=== PATIENT | male | born 1995 | race Caucasian/White ===

== ENCOUNTER 2021-01-13 17:08 | Inpatient (IN) | payer OTHER ==
[~2021-01-13] VITALS: Ht 172.7 cm; Wt 72.6 kg
[2021-01-13 17:24] VITALS: Ht 172.7 cm; Wt 72.6 kg
[2021-01-13 17:41] LABS: microscopic required? NO
[2021-01-13 17:43] LABS: BASOPHIL % 0.5 % (0.2-1.5); PLATELET COUNT 270 x10^3mcL (152-348); RED CELL DISTRIBUTION WIDTH 12.3 % (12.1-16.2)
[2021-01-13 17:49] LABS: UA SPECIFIC GRAVITY >=1.030 (1.005-1.035); urine erythrocyte NEGATIVE (NEGATIVE)
[2021-01-13 17:56] LABS: AMPHETAMINE QUAL UR NONE DETECTED (See below)
[2021-01-13 17:58] LABS: CARBON DIOXIDE 24.4 mmol/L (21-32); CHLORIDE SERUM 99 mmol/L (98-107); CREATININE SERUM 1.2 mg/dL (0.7-1.3); GFR1 > 60 mL/min; GLUCOSE SERUM 123 mg/dL (74-106); POTASSIUM SERUM 4.1 mmol/L (3.5-5.1); SODIUM SERUM 138 mmol/L (136-145)
[2021-01-13 18:10] LABS: ALBUMIN 4.4 g/dL (3.4-5.0); ALKALINE PHOSPHATASE 84 U/L (46-116); ALT/SGPT 27 U/L (16-63); AST/SGOT 41 U/L (15-37); BILIRUBIN TOTAL 2.09 mg/dL (0.20-1.00); T4(THYROXINE) 11.1 ug/dL (4.7-13.3)
[2021-01-13] MEDS ORDERED: VOLTAREN100 GM TOP (19:48)
[2021-01-13] MEDS ORDERED: COGENTIN2 MG/2 ML PO (21:58)
[2021-01-13] MEDS ORDERED: HYDROXYZIN10 MG/5 M2 PO (21:58)
[2021-01-13] MEDS ORDERED: VIS50 PO (21:59)
[2021-01-13] MEDS ORDERED: THO50 PO (21:59)
[2021-01-13] MEDS ORDERED: THO10 PO (21:59)
[2021-01-14 00:19] VITALS: BP 115/69
[2021-01-14 05:23] VITALS: BP 105/55
[2021-01-14 05:57] LABS: CARBON DIOXIDE 23.9 mmol/L (21-32); CHLORIDE SERUM 104 mmol/L (98-107); CREATININE SERUM 0.9 mg/dL (0.7-1.3); GFR1 > 60 mL/min; GLUCOSE SERUM 93 mg/dL (74-106); POTASSIUM SERUM 4.2 mmol/L (3.5-5.1); SODIUM SERUM 141 mmol/L (136-145)
[2021-01-14 06:28] LABS: BASOPHIL % 0.3 % (0.2-1.5); PLATELET COUNT 240 x10^3mcL (152-348); RED CELL DISTRIBUTION WIDTH 12.6 % (12.1-16.2)
[2021-01-14 07:44] VITALS: BP 119/64
[2021-01-14 12:42] VITALS: BP 117/69
[2021-01-14 17:05] VITALS: BP 118/59
[2021-01-14 19:46] VITALS: BP 105/67
[2021-01-15 04:18] VITALS: BP 94/54
[2021-01-15 05:48] LABS: BASOPHIL % 1.1 % (0.2-1.5); PLATELET COUNT 210 x10^3mcL (152-348); RED CELL DISTRIBUTION WIDTH 12.3 % (12.1-16.2)
[2021-01-15 05:49] LABS: CALCIUM 7.7 mg/dL (8.5-10.1); CARBON DIOXIDE 28.5 mmol/L (21-32); CHLORIDE SERUM 106 mmol/L (98-107); CREATININE SERUM 0.8 mg/dL (0.7-1.3); GFR1 > 60 mL/min; GLUCOSE SERUM 98 mg/dL (74-106); POTASSIUM SERUM 3.6 mmol/L (3.5-5.1); SODIUM SERUM 142 mmol/L (136-145)
[2021-01-15 05:50] LABS: ALKALINE PHOSPHATASE 65 U/L (46-116); ALT/SGPT 24 U/L (16-63); AST/SGOT 44 U/L (15-37); BILIRUBIN TOTAL 0.7 mg/dL (0.20-1.00); CARBON DIOXIDE 28.9 mmol/L (21-32); CHLORIDE SERUM 105 mmol/L (98-107); CREATININE SERUM 0.7 mg/dL (0.7-1.3); GFR1 > 60 mL/min; GLUCOSE SERUM 95 mg/dL (74-106); PHOSPHOROUS 2.6 mg/dL (2.5-4.9); POTASSIUM SERUM 3.8 mmol/L (3.5-5.1); SODIUM SERUM 141 mmol/L (136-145)
[2021-01-15 05:52] LABS: TOTAL PROTEIN, SERUM 5.4 g/dL (6.4-8.2)
[2021-01-15 07:47] VITALS: BP 119/59
[2021-01-15 12:25] VITALS: BP 133/74
[2021-01-15 16:00] VITALS: BP 124/74
[2021-01-15 19:52] VITALS: BP 112/79
[2021-01-16 05:45] VITALS: BP 119/72
[2021-01-16 08:02] LABS: ALKALINE PHOSPHATASE 59 U/L (46-116); ALT/SGPT 26 U/L (16-63); AST/SGOT 33 U/L (15-37); BILIRUBIN TOTAL 0.5 mg/dL (0.20-1.00); CALCIUM 8.7 mg/dL (8.5-10.1); CARBON DIOXIDE 28.9 mmol/L (21-32); CHLORIDE SERUM 106 mmol/L (98-107); CREATININE SERUM 0.7 mg/dL (0.7-1.3); GFR1 > 60 mL/min; GLUCOSE SERUM 96 mg/dL (74-106); PHOSPHOROUS 3.1 mg/dL (2.5-4.9); POTASSIUM SERUM 3.8 mmol/L (3.5-5.1); SODIUM SERUM 141 mmol/L (136-145)
[2021-01-16 08:03] LABS: ALBUMIN 3.1 g/dL (3.4-5.0)
[2021-01-16 08:05] VITALS: BP 124/62
[2021-01-16 12:11] VITALS: BP 129/75
[2021-01-16 16:59] VITALS: BP 130/78
[2021-01-16] MEDS ORDERED: SUBOXONE1 FI1 SL (22:00)
== END 2021-01-16 20:41 | DRG 918 ==
LOC: ED 17:08 → DU 21:35
PROVIDERS: Emergency Medicine; Internal Medicine; ADMIT Internal Medicine; ATTEND Internal Medicine
DX: T50.901A Poisoning by unspecified drugs, medicaments and biological substances, accidental (unintentional), initial encounter (principal); M62.82 Rhabdomyolysis; N17.9 Acute kidney failure, unspecified; Z20.822 Contact with and (suspected) exposure to COVID-19; Y92.89 Other specified places as the place of occurrence of the external cause; F17.210 Nicotine dependence, cigarettes, uncomplicated; F29 Unspecified psychosis not due to a substance or known physiological condition; I95.9 Hypotension, unspecified
CPT/HCPCS: G0378; G0480; J0515; J1200; J2060; J2405; J3490; J7030; U0003